=== PATIENT | female | born 1985 | race Caucasian/White ===

== ENCOUNTER 2017-07-16 12:20 | Emergency (ER) | payer OTHER ==
[2017-07-16 13:38] VITALS: TEMP 98.2
--- NOTE | 2017-07-16 15:27 | ED.PDOC ---
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 She does have a current that is approximately 16 weeks along according to her. She has a history of labor but only a few weeks and update in her last 2 pregnancies. She is not having any vaginal discharge or bleeding. Cramping is very minor. She has not yet felt the baby move. No long-standing medical problems. No trauma. No urinary symptoms. No new back pain. No history of preeclampsia. No history of gestational diabetes. No history of thyroid issues. She does take vitamin. Timing/Duration: unsure Severity: mild Improving Factors: nothing Worsening Factors: nothing Associated Symptoms: denies symptoms Allergies/Adverse Reactions: Allergies Penicillins Allergy (Verified 07/16/17 13:38) Rash Review of Systems - Review of Systems Constitutional: States: no symptoms reported EENTM: States: no symptoms reported Respiratory: States: no symptoms reported Cardiology: States: no symptoms reported Gastrointestinal/Abdominal: States: no symptoms reported Genitourinary: States: see HPI Musculoskeletal: States: no symptoms reported Skin: States: no symptoms reported Neurological: States: no symptoms reported Endocrine: States: no symptoms reported All other Systems: No Change from Baseline Past Medical History (General) - Patient Medical History Hx Asthma: No Hx Hypertension: No Surgical History: no surgical history - Vaccination History Hx Influenza Vaccination: No - Social History Hx Tobacco Use: No Hx Alcohol Use: No - Female History Patient is a Female of Child Bearing Age (10 -59 yrs old): Yes Patient : Yes Expected Date of Delivery:: 12/04/17 Family Medical History - Family History Mother Family History: Unknown Physical Exam - Physical Exam General Appearance: Alert, Comfortable, No apparent distress Eye Exam: bilateral normal Ears, Nose, Throat: hearing grossly normal, normal ENT inspection, normal pharynx Neck: full range of motion, supple Respiratory: lungs clear, normal breath sounds, no respiratory distress, no accessory muscle use Cardiovascular/Chest: normal peripheral pulses, regular rate, rhythm, no edema Peripheral Pulses: radial,right: 2+, radial,left: 2+, dorsalis pedis,right: 2+, dorsalis pedis,left: 2+ Gastrointestinal/Abdominal: non tender, soft Rectal Exam: deferred Back Exam: no CVA tenderness, no vertebral tenderness Extremity: non-tender, normal inspection, no pedal edema, normal capillary refill 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 The patient is approximately 4 months along. Ultrasound done by me here with a low resolution ultrasound confirms a viable of 1 child. Placenta is anterior. The child is moving. Cardiac motion is noted. Adequate fluid appears to be present. Urinalysis only shows that the patient is dehydrated. vital signs otherwise appear stable. The patient does need to increase her fluid intake. 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 ER warnings are given for any significant worsening. - Results/Orders Results/Orders: Laboratory Tests 07/16/17 14:42 Urine Color Yellow Urine Appearance Cloudy Urine pH 6.0 Ur Specific Mongo >= 1.030 Urine Protein Negative Urine Glucose (UA) Negative Urine Ketones Negative Urine Blood Negative Urine Nitrite Negative Urine Bilirubin Negative Urine Urobilinogen 0.2 Ur Leukocyte Esterase Moderate H Urine RBC 1-3 Urine WBC 1-3 Ur Epithelial Cells 30-40 Amorphous Sediment 2+ Urine Bacteria 1+ Departure - Departure Clinical Impression: Abdominal cramping Disposition: Discharge to Home or Self Care Condition: Fair Departure Forms: ED Discharge - Pt. Copy, Patient Portal Self Enrollment Diet: regular diet Activity: increase activity as tolerated Additional Instructions: the patient is a 32-year-old female presenting to the emergency room secondary to some mild abdominal cramping. The patient is approximately 4 months along. Ultrasound done by me here with a low resolution ultrasound confirms a viable of 1 child. Placenta is anterior. The child is moving. Cardiac motion is noted. Adequate fluid appears to be present. Urinalysis only shows that the patient is dehydrated. vital signs otherwise appear stable. The patient does need to increase her fluid intake. 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 ER warnings are given for any significant worsening.
[2017-07-16 15:55] VITALS: BP 113/77; O2SAT 96
== END 2017-07-16 15:50 | disposition home or self-care (01) ==
LOC: ER 12:20
DX: O26.892 Other specified pregnancy related conditions, second trimester (principal); R10.9 Unspecified abdominal pain; Z3A.16 16 weeks gestation of pregnancy